=== PATIENT | female | born 1980 | race African-American/Black ===

== ENCOUNTER 2016-12-08 19:18 | Emergency (ER) | payer BC, OTHER ==
[~2016-12-08] VITALS: Ht 160 cm; Wt 115.2 kg
[~2016-12-08 19:18] MED LIST: CEPH500C PO; GUAI10LI PO
[2016-12-08 19:57] VITALS: BP 125/79
[2016-12-08] MEDS ORDERED: LIDOCAINE 1% / SOD BICARB 8.4% 20 ML VIAL. IJ ONE (20:30)
[2016-12-08] MEDS ORDERED: HYDROcodone/APAP 5/325MG 1 TAB TABLET PO ONE (20:30)
[2016-12-08] MEDS ORDERED: SULF1TAB24 PO (21:26)
[2016-12-08] MEDS ORDERED: HYDR-971 PO (21:26)
--- NOTE | 2016-12-08 21:26 | PHYS DOC ---
Past Medical History Past Medical History: Asthma, Hypertension Additional Past Medical Histor: htn w/ Past Surgical History: Cholecystectomy, , Other Additional Past Surgical Histo: cyst removed from right breast, sweat gland removed Alcohol Use: Occasionally Drug Use: None Adult General Chief Complaint Chief Complaint: ABSCESS HPI HPI Patient is a 35 year old female with history of htn who presents with an abscess on her coccyx for 2 days. Patient denies any drainage from the area. She states she's had a previous abscess on the same area a couple years ago. Patient denies any fever. Review of Systems Review of Systems Constitutional: Denies fever or chills [] Eyes: Denies change in visual acuity, redness, or eye pain [] HENT: Denies nasal congestion or sore throat [] Musculoskeletal: Denies back pain or joint pain [] Integument: abscess on her coccyx Neurologic: Denies headache, focal weakness or sensory changes [] Endocrine: Denies polyuria or polydipsia [] Current Medications Current Medications Current Medications Medications (Trade) Dose Ordered Sig/Kaiden Start Time Stop Time Status Last Admin Dose Admin Acetaminophen/ Hydrocodone Bitart (Lortab 5/325) 1 tab 1X ONCE 12/08/16 20:30 12/08/16 20:31 DC 12/08/16 20:20 1 TAB Lidocaine/Sodium Bicarbonate (Buffered Lidocaine 1%) 20 ml 1X ONCE 12/08/16 20:30 12/08/16 20:31 DC 12/08/16 20:30 20 ML Allergies Allergies Allergies Coded Allergies Type Severity Reaction Last Updated Verified No Known Drug Allergies 05/10/13 No Physical Exam Physical Exam Constitutional: Well developed, well nourished, no acute distress, non-toxic appearance. [] HENT: Normocephalic, atraumatic, bilateral external ears normal, oropharynx moist, no oral exudates, nose normal. [] Skin: Small area of induration approximately 1 x 0.5 cm is noted on the coccyx is consistent with pilonidal abscess, the area is erythematous warm tender to palpate and very fluctuant. Back: No tenderness, no CVA tenderness. [] Extremities: No tenderness, no cyanosis, no clubbing, ROM intact, no edema. [] Neurologic: Alert and oriented X 3, normal motor function, normal sensory function, no focal deficits noted. [] Psychologic: Affect normal, judgement normal, mood normal. [] Current Patient Data Vital Signs Vital Signs Date Time Temp Pulse Resp B/P (MAP) Pulse Ox O2 Delivery O2 Flow Rate FiO2 12/08/16 20:20 16 Room Air 12/08/16 19:57 98.8 77 97 98.8 EKG EKG [] Radiology/Procedures Radiology/Procedures Indication: abscess of piloidal Procedure: The patient was positioned appropriately. Local anesthesia was 1% buffered lidocaine. An incision was then made over the apex of the lesion and moderate amount of yellow purulent bloody material was expressed. The drainage cavity was irrigated and packed with sterile gauze. The patients tetanus status updated as needed. The patient tolerated the procedure well. Complications: none.[] Course & Med Decision Making Course & Med Decision Making Pertinent Labs and Imaging studies reviewed. (See chart for details) Patient has a pilonidal abscess with cellulitis that was drained and packed by me as noted in procedures. Tetanus is up-to-date. She is to return to the ED in 2 days for wound check. Discharged with Bactrim. Dragon Disclaimer Dragon Disclaimer This electronic medical record was generated, in whole or in part, using a voice recognition dictation system. Departure Departure Impression: Primary Impression: Pilonidal abscess Disposition: 01 HOME, SELF-CARE Condition: STABLE Referrals: KASIA CALLAHAN MD (PCP) follow up with the ED in 2 days for wound check and packing removal Patient Instructions: Abscess, Care After Additional Instructions: You had an abscess drained from your coccyx. Keep the area clean and dry. Follow -up with the ED in 2 days for packing removal as well as wound check. Complete your antibiotics. Come back to the ED at any point symptoms worsen. Scripts Hydrocodone/Apap 5-325 (NORCO 5-325 TABLET) 1 Each Tablet 1-2 TAB PO Q4-6HRS, #20 TAB Prov: KITTY JUSTIN MANAGER PLAY 12/08/16 Sulfamethoxazole/Trimethoprim (BACTRIM DS TABLET) 1 Each Tablet 1 TAB PO BID, #20 TAB Prov: KITTY JUSTIN MANAGER [employer] 12/08/16 KITTY JUSTIN APRN Dec 08, 2016 21:26
== END 2016-12-08 21:35 | disposition home or self-care (01) ==
LOC: ER 19:18
DX: L05.01 Pilonidal cyst with abscess (principal); I10 Essential (primary) hypertension; J45.909 Unspecified asthma, uncomplicated; Z90.49 Acquired absence of other specified parts of digestive tract
CPT/HCPCS: 10080; 99283-25

== ENCOUNTER 2018-05-17 05:05 | Emergency (ER) | payer OTHER ==
[~2018-05-17] VITALS: Ht 162.6 cm; Wt 115.2 kg
[~2018-05-17 05:05] MED LIST changes: +HYDR-3164 PO; +SULF1TAB24 PO
[2018-05-17 05:18] VITALS: BP 186/99
[2018-05-17] MEDS ORDERED: ONDANSETRON PF 4 MG/2 ML VIAL. IV ONE ×2 (06:00→06:30)
[2018-05-17] MEDS ORDERED: fentaNYL PF VIAL 100 MCG/2 ML VIAL IV ONE (06:00)
[2018-05-17 06:07] LABS: BASO % 0 % (0-3); BILIRUBIN,URINE NEGATIVE (NEG); CLARITY,URINE CLOUDY; COLOR,URINE YELLOW; EOS # 0.2 x10^3/uL (0.0-0.7); EOS % 2 % (0-3); HEMATOCRIT 35.6 % (36.0-47.0); HEMOGLOBIN 11.8 g/dL (12.0-15.5); LYMPH # 3.5 x10^3/uL (1.0-4.8); LYMPH % 41 % (24-48); MEAN CORPUSCULAR HEMOGLOBIN 29 pg (25-35); MEAN CORPUSCULAR HGB CONC 33 g/dL (31-37); MEAN CORPUSCULAR VOLUME 86 fL (79-100); MONO # 0.5 x10^3/uL (0.0-1.1); MONO % 6 % (0-9); NEUT # 4.3 x10^3uL (1.8-7.7); NEUT % 50 % (31-73); NITRITE,URINE NEGATIVE (NEG); PLATELET COUNT 157 x10^3/uL (140-400); PROTEIN,URINE 30 mg/dL (NEG-TRACE); RED BLOOD COUNT 4.13 x10^6/uL (3.50-5.40); RED CELL DISTRIBUTION WIDTH 16.2 % (11.5-14.5); WHITE BLOOD COUNT 8.6 x10^3/uL (4.0-11.0)
[2018-05-17 06:14] LABS: BACTERIA,URINE MOD /HPF (0-FEW); SQUAMOUS EPITHELIAL CELL,UR MOD /LPF
[2018-05-17 06:18] LABS: CALCIUM 8.9 mg/dL (8.5-10.1); CREATININE 0.8 mg/dL (0.6-1.0); GFR 97.1
[2018-05-17 06:23] LABS: ALBUMIN 3.4 g/dL (3.4-5.0); DIRECT BILIRUBIN 0.1 mg/dL (0.0-0.2); TOTAL BILIRUBIN 0.2 mg/dL (0.2-1.0); TOTAL PROTEIN 7.4 g/dL (6.4-8.2)
[2018-05-17] MEDS ORDERED: MORPHINE SULFATE 10 MG/ML VIAL. IV ONE (06:30)
[2018-05-17] MEDS ORDERED: CONTRAST GIVEN. MC PRN (06:45)
[2018-05-17] MEDS ORDERED: IOHEXOL 300 MG/ML 100ML VIAL. IV ONE (06:45)
--- NOTE | 2018-05-17 07:44 | RAD ---
EXAM: CT Abdomen and Pelvis with IV contrast CLINICAL HISTORY: Abdominal pain COMPARISON: CT 03/31/2012 TECHNIQUE: Helical CT of the abdomen and pelvis was performed following the administration of intravenous contrast. Axial, coronal and sagittal reformatted images were generated. PQRS compliance statement - One or more of the following individualized dose reduction techniques were utilized for this study: 1. Automated exposure control 2. Adjustment of the mA and/or kV according to patient size 3. Use of iterative reconstruction technique FINDINGS: Lower chest: A 3 mm right lower lobe lung nodule (series 2 image 1) is seen. Vague linear opacities in the lingula and middle lobe likely atelectasis. Heart is not enlarged. Abdomen and Pelvis: No focal liver lesion. Cholecystectomy clips are seen. No biliary ductal dilatation. Spleen is unremarkable. Adrenal glands and pancreas are unremarkable. Symmetric nephrograms. Punctate nonobstructing right lower pole renal calculus is seen. No hydronephrosis. No small or large bowel dilatation. Appendix is normal. Moderate distal sigmoid and rectal stool content No abdominal or pelvic ascites. No free intraperitoneal gas. No abdominal or pelvic lymphadenopathy by size criteria. Bladder is unremarkable. Prominence of endometrium likely from phase of menstrual cycle. Bones: No definite aggressive osseous lesion is identified. Left os acetabuli is incidentally seen. IMPRESSION: 1. No definite CT findings to account for the patient's abdominal or pelvic pain. 2. There has been a cholecystectomy without biliary ductal dilatation. 3. A 3 mm right lower lobe lung nodule is seen. In a low-risk patient, no further follow-up is necessary. Electronically signed by: Quincy Brooke MD (05/17/2018 7:41 AM) [facility]
--- NOTE | 2018-05-17 07:53 | PHYS DOC ---
Past Medical History Past Medical History: Asthma, Hypertension, Ovarian Cyst Additional Past Medical Histor: htn w/ Past Surgical History: Cholecystectomy, , Other Additional Past Surgical Histo: cyst removed from right breast, sweat gland removed Alcohol Use: Occasionally Drug Use: None Adult General Chief Complaint Chief Complaint: ABDOMINAL PAIN HPI HPI Patient is a 37 year old -[place] female presents with diffuse midabdominal pain starting approximately 10 hours prior to ED arrival. Pain is described as sharp, radiates to her back and is rated moderate to severe. It is associated with intense nausea without vomiting and is not relieved with bowel movements. Pain is worse with palpation and movement. Denies fever chills, sweats. No hematuria, dysuria. Last menstrual period was 2 weeks ago. Previous cholecystectomy and bilateral tubal ligation. [] Review of Systems Review of Systems ROS as per HPI All other systems were reviewed and found to be within normal limits, except as documented in this note. Current Medications Current Medications Current Medications Medications (Trade) Dose Ordered Sig/Kaiden Start Time Stop Time Status Last Admin Dose Admin Ceftriaxone Sodium (Rocephin) 1 gm 1X ONCE 05/17/18 08:00 05/17/18 08:01 DC 05/17/18 08:23 1 GM Fentanyl Citrate (Fentanyl 2ml Vial) 75 mcg 1X ONCE 05/17/18 06:00 05/17/18 06:01 DC 05/17/18 06:12 75 MCG Info (CONTRAST GIVEN -- Rx MONITORING) 1 each PRN DAILY PRN 05/17/18 06:45 05/19/18 06:44 Iohexol (Omnipaque 300 Mg/ml) 75 ml 1X ONCE 05/17/18 06:45 05/17/18 06:46 DC 05/17/18 07:04 75 ML Morphine Sulfate (Morphine Sulfate) 5 mg 1X ONCE 05/17/18 06:30 05/17/18 06:33 DC 05/17/18 06:30 5 MG Ondansetron HCl (Zofran) 4 mg 1X ONCE 05/17/18 06:30 05/17/18 06:33 DC 05/17/18 06:30 4 MG Sodium Chloride 1,000 ml @ 1,000 mls/hr 1X ONCE 05/17/18 08:00 05/17/18 08:59 05/17/18 08:24 1,000 MLS/HR Allergies Allergies Allergies Coded Allergies Type Severity Reaction Last Updated Verified No Known Drug Allergies 05/10/13 No Physical Exam Physical Exam Constitutional: Well developed, well nourished, no acute distress, non-toxic appearance. [] HENT: Normocephalic, atraumatic, bilateral external ears normal, oropharynx moist, nose normal. [] Eyes: PERRLA, EOMI, conjunctiva normal. [] Neck: Normal range of motion, no tenderness. [] Cardiovascular:Heart rate regular rhythm. [] Lungs & Thorax: Bilateral breath sounds clear to auscultation. [] Abdomen: Bowel sounds normal, soft, diffuse abdominal pain/tenderness, No R/R/ G. [] Skin: Warm, dry, no erythema, no rash. [] Back: No tenderness. [] Extremities: No tenderness, no edema. [] Neurologic: Alert and oriented X 3, normal motor function, normal sensory function, no focal deficits noted. [] Psychologic: Affect normal, judgement normal, mood normal. [] Current Patient Data Vital Signs Vital Signs Date Time Temp Pulse Resp B/P (MAP) Pulse Ox O2 Delivery O2 Flow Rate FiO2 05/17/18 06:30 16 98 05/17/18 05:18 97.4 72 186/99 (128) Room Air 97.4 Lab Values Laboratory Tests Test 05/17/18 05:29 05/17/18 05:30 POC Urine HCG, Qualitative Hcg negative (Negative) White Blood Count 8.6 x10^3/uL (4.0-11.0) Red Blood Count 4.13 x10^6/uL (3.50-5.40) Hemoglobin 11.8 g/dL (12.0-15.5) L Hematocrit 35.6 % (36.0-47.0) L Mean Corpuscular Volume 86 fL (79-100) Mean Corpuscular Hemoglobin 29 pg (25-35) Mean Corpuscular Hemoglobin Concent 33 g/dL (31-37) Red Cell Distribution Width 16.2 % (11.5-14.5) H Platelet Count 157 x10^3/uL (140-400) Neutrophils (%) (Auto) 50 % (31-73) Lymphocytes (%) (Auto) 41 % (24-48) Monocytes (%) (Auto) 6 % (0-9) Eosinophils (%) (Auto) 2 % (0-3) Basophils (%) (Auto) 0 % (0-3) Neutrophils # (Auto) 4.3 x10^3uL (1.8-7.7) Lymphocytes # (Auto) 3.5 x10^3/uL (1.0-4.8) Monocytes # (Auto) 0.5 x10^3/uL (0.0-1.1) Eosinophils # (Auto) 0.2 x10^3/uL (0.0-0.7) Basophils # (Auto) 0.0 x10^3/uL (0.0-0.2) Urine Collection Type Unknown Urine Color Yellow Urine Clarity Cloudy Urine pH 6.0 Urine Specific Bronson >=1.030 Urine Protein 30 mg/dL (NEG-TRACE) Urine Glucose (UA) Negative mg/dL (NEG) Urine Ketones (Stick) Negative mg/dL (NEG) Urine Blood Trace (NEG) Urine Nitrite Negative (NEG) Urine Bilirubin Negative (NEG) Urine Urobilinogen Dipstick 1.0 mg/dL (0.2 mg/dL) Urine Leukocyte Esterase Small (NEG) Urine RBC 1-2 /HPF (0-2) Urine WBC 5-10 /HPF (0-4) Urine Squamous Epithelial Cells Mod /LPF Urine Bacteria Mod /HPF (0-FEW) Urine Mucus Mod /LPF Sodium Level 139 mmol/L (136-145) Potassium Level 4.0 mmol/L (3.5-5.1) Chloride Level 106 mmol/L (98-107) Carbon Dioxide Level 21 mmol/L (21-32) Anion Gap 12 (6-14) Blood Urea Nitrogen 8 mg/dL (7-20) Creatinine 0.8 mg/dL (0.6-1.0) Estimated GFR (Cockcroft-Gault) 97.1 Glucose Level 101 mg/dL (70-99) H Calcium Level 8.9 mg/dL (8.5-10.1) Total Bilirubin 0.2 mg/dL (0.2-1.0) Direct Bilirubin 0.1 mg/dL (0.0-0.2) Aspartate Amino Transferase (AST) 23 U/L (15-37) Alanine Aminotransferase (ALT) 24 U/L (14-59) Alkaline Phosphatase 96 U/L (46-116) Total Protein 7.4 g/dL (6.4-8.2) Albumin 3.4 g/dL (3.4-5.0) Lipase 190 U/L (73-393) Laboratory Tests 05/17/18 05:30 Laboratory Tests 05/17/18 05:30 EKG EKG [] Radiology/Procedures Radiology/Procedures [CT abd/pelvis: No definitive CT findings to account for abdominal pelvic pain.] Course & Med Decision Making Course & Med Decision Making Pertinent Labs and Imaging studies reviewed. (See chart for details) [Midabdominal pain with nausea. Lab work, CT abdomen pelvis reviewed nondiagnostic. Dramatic relief with pain medication and nausea medication. Antibiotics given for probable urinary tract infection. Recommend continued supportive care with PCP follow-up.] Dragon Disclaimer Dragon Disclaimer This electronic medical record was generated, in whole or in part, using a voice recognition dictation system. Departure Departure Impression: Primary Impression: UTI (lower urinary tract infection) Additional Impression: Abdominal pain Disposition: HOME, SELF-CARE Condition: GOOD Referrals: KASIA CALLAHAN MD (PCP) Patient Instructions: Abdominal Pain, Urinary Tract Infection, [id number] Additional Instructions: You were evaluated in the emergency department for abdominal pain and nausea. CT and work were performed and are nondiagnostic except for the presence of urinary tract infection. Please take nausea medication and antibiotics as directed. Take Tylenol and is otherwise needed for pain. Follow-up with your PCP in 2-3 days for reevaluation and to review urine culture results. Return to the ED if new or worsening symptoms. Scripts Ondansetron Hcl (ZOFRAN) 4 Mg Tablet 1 TAB PO Q6HRS, #10 TAB 0 Refills Prov: JAGDEEP MARTINES DO 05/17/18 Cephalexin (KEFLEX) 500 Mg Capsule 1 CAP PO TID, #21 CAP Prov: JAGDEEP MARTINES DO 05/17/18 Problem Qualifiers JAGDEEP MARTINES DO May 17, 2018 07:53
[2018-05-17] MEDS ORDERED: cefTRIAXone IV Push 1 GM VIAL. IVP ONE (08:00)
[2018-05-17] MEDS ORDERED: IV NORMAL SALINE 1000ML BAG 1,000 ML IV ONE (08:00)
[2018-05-17] MEDS ORDERED: ONDA4TAB7 PO (08:45)
[2018-05-17] MEDS ORDERED: CEPH-264 PO (08:45)
== END 2018-05-17 09:00 | disposition home or self-care (01) ==
LOC: ER 05:05
DX: N39.0 Urinary tract infection, site not specified (principal); R10.84 Generalized abdominal pain; J45.909 Unspecified asthma, uncomplicated; I10 Essential (primary) hypertension; Z90.49 Acquired absence of other specified parts of digestive tract
CPT/HCPCS: 36415; 74177; 80048; 80076; 81001; 81025; 83690; 85025; 96374; 96375; 99284; J0696; J2270; J2405; J3010; J7030; Q9967